=== PATIENT | female | born 1970 | race Caucasian/White ===

== ENCOUNTER 2020-08-29 14:40 | Emergency (ER) | payer OTHER ==
[2020-08-29 14:55] VITALS: BP 165/68; PULSE 80; BMI 34.7
[2020-08-29] MEDS ORDERED: SODIUM CHLORIDE 0.9% 500 ML INFUS.BAG IV ONE (15:48)
[2020-08-29] MEDS ORDERED: KETOROLAC TROMETHAMINE 30 MG/1 ML VIAL IM ONE (15:49)
[2020-08-29] MEDS ORDERED: KETOROLAC TROMETHAMINE 30 MG/1 ML VIAL ONE (15:53)
[2020-08-29 16:47] LABS: BASO % 1.5 % (0-2.0); EOS % 2.3 % (0-4.5); HEMATOCRIT 26.6 % (32.4-45.2); HEMOGLOBIN 8.4 GM/dL (10.7-15.3); LYMPH % 30.4 % (8-40); MCH 25.3 pg (25.7-33.7); MCHC 31.5 g/dl (32.0-36.0); MEAN CELL VOLUME 80.4 fl (80-96); MEAN PLT VOLUME 8.1 fl (7.5-11.1); MONO % 11.6 % (3.8-10.2); NEUT % 54.2 % (42.8-82.8); PLATELET COUNT 462 K/MM3 (134-434); RBC 3.31 M/mm3 (3.60-5.2); RDW 14.5 % (11.6-15.6); WHITE BLOOD COUNT 4.9 K/mm3 (4.0-10.0)
[2020-08-29 17:10] LABS: CHLORIDE 102 mmol/L (98-107); POTASSIUM 4.4 mmol/L (3.5-5.1); SODIUM 138 mmol/L (136-145)
[2020-08-29 17:12] LABS: CALCIUM 8.7 mg/dL (8.5-10.1)
[2020-08-29 17:13] LABS: ALBUMIN 3.7 g/dl (3.4-5.0); ANION GAP 7 MMOL/L (8-16); BLOOD UREA NITROGEN 11.6 mg/dL (7-18); CO2 28 mmol/L (21-32); GLUCOSE,RANDOM 83 mg/dL (74-106)
[2020-08-29 17:16] LABS: CREATININE 0.7 mg/dL (0.55-1.3); SGOT/AST 28 U/L (15-37); SGPT/ALT 16 U/L (13-61)
[2020-08-29 17:17] LABS: BILIRUBIN,TOTAL 0.3 mg/dL (0.2-1); TOT PROT 7.9 g/dl (6.4-8.2)
[2020-08-29 17:18] LABS: ALK PHOS 91 U/L (45-117)
[2020-08-29 17:29] LABS: EPI CELLS 15 /uL (0-25.1); HYALINE CASTS 7 /uL (0-3.1); URINE APPEARANCE CLOUDY; URINE BACTERIA 295 /uL (0-1359); URINE BILIRUBIN NEGATIVE (NEGATIVE); URINE COLOR RED; URINE GLUCOSE (UA) NEGATIVE (NEGATIVE); URINE KETONE NEGATIVE (NEGATIVE); URINE LEUK ESTERASE 2+ (NEGATIVE); URINE NITRITE NEGATIVE (NEGATIVE); URINE PROTEIN 2+ (NEGATIVE); URINE RBC 5001 /uL (0-23.9); URINE UROBILINOGEN 0.2 mg/dL (0.2-1.0); URINE WBC 213 /uL (0-25.8)
[2020-08-29] MEDS ORDERED: medroxyPROGESTERone ACET 150 MG/1 ML VIAL IM ONE (17:53)
== END 2020-08-29 18:15 | disposition home or self-care (01) ==
LOC: JER 14:40
PROC: 3E023GC Introduction of Other Therapeutic Substance into Muscle, Percutaneous Approach (ICD-10-PCS; principal; 2020-08-29)
DX: N93.9 Abnormal uterine and vaginal bleeding, unspecified (principal)
CPT/HCPCS: 36415; 76830-TC; 80053; 81003; 84702; 85025; 99284-25

== ENCOUNTER 2020-09-26 04:23 | Day surgery (SDC) | payer OTHER ==
[2020-09-24 11:13] VITALS: BMI 34.9
[2020-09-26] MEDS ORDERED: MIDAZOLAM HCL 2 MG/2 ML SINGLE DOSE VIAL ONE (14:12)
[2020-09-26] MEDS ORDERED: PROPOFOL 20 ML ONE ×2 (14:12→14:35)
[2020-09-26] MEDS ORDERED: LIDOCAINE HCL 2% 100 MG/5 ML DISP.SYRIN ONE (14:25)
[2020-09-26] MEDS ORDERED: DEXAMETHASONE SOD PHOSPHATE 4 MG/1 ML VIAL ONE (14:43)
[2020-09-26] MEDS ORDERED: oxyCODONE HCL 5 MG TABLET PO PRN ×3 (14:58→16:53)
[2020-09-26] MEDS ORDERED: ONDANSETRON 4 MG/2 ML VIAL IVPUSH PRN ×2 (14:58→16:53)
[2020-09-26] MEDS ORDERED: LACTATED RINGERS SOLUTION 1,000 ML IV SCH (15:00)
[2020-09-26] MEDS ORDERED: IBUPROFEN 600 MG TABLET (FP) PO PRN (16:53)
[2020-09-26] MEDS ORDERED: IBUPROFEN 800 MG/8 ML IJ IVPB PRN (16:53)
[2020-09-26] MEDS ORDERED: ELECTROLYTE-148 SOLN 1,000 ML IV SCH (17:00)
[2020-09-26] MEDS ORDERED: oxyCODONE HCL 5 MG TABLET ONE (17:03)
[2020-09-26] MEDS ORDERED: ONDANSETRON 4 MG/2 ML VIAL ONE (17:05)
[2020-09-26 18:44] VITALS: BP 160/69; PULSE 83; TEMP 97.1
== END 2020-09-26 18:35 | disposition home or self-care (01) ==
LOC: JASU-SURG 04:23
PROVIDERS: ATTEND Obstetrics & Gynecology
PROC: 0UJD8ZZ Inspection of Uterus and Cervix, Via Natural or Artificial Opening Endoscopic (ICD-10-PCS; 2020-09-26)
PROC: 0UB98ZZ Excision of Uterus, Via Natural or Artificial Opening Endoscopic (ICD-10-PCS; principal; 2020-09-26 14:00)
PROC: 0UDB7ZX Extraction of Endometrium, Via Natural or Artificial Opening, Diagnostic (ICD-10-PCS; 2020-09-26 14:00)
DX: N92.1 Excessive and frequent menstruation with irregular cycle (principal); D25.0 Submucous leiomyoma of uterus; D64.9 Anemia, unspecified
CPT/HCPCS: 84703; 88305-TC; 94760

== ENCOUNTER 2020-10-19 17:51 | Emergency (ER) | payer OTHER ==
[2020-10-19 18:14] VITALS: BP 146/67; PULSE 74; TEMP 98.5; BMI 34.9
[2020-10-19] MEDS ORDERED: KETOROLAC TROMETHAMINE 30 MG/1 ML VIAL IVPUSH ONE (21:05)
[2020-10-19] MEDS ORDERED: KETOROLAC TROMETHAMINE 30 MG/1 ML VIAL ONE (21:22)
[2020-10-19 21:45] LABS: POTASSIUM 4.2 mmol/L (3.5-5.1)
[2020-10-19 21:47] LABS: ALBUMIN 3.4 g/dl (3.4-5.0); BLOOD UREA NITROGEN 11.4 mg/dL (7-18); CALCIUM 8.2 mg/dL (8.5-10.1)
[2020-10-19 21:50] LABS: BASO % 1.2 % (0-2.0); CREATININE 0.7 mg/dL (0.55-1.3); EOS % 4.1 % (0-4.5); HEMATOCRIT 32.6 % (32.4-45.2); HEMOGLOBIN 10.7 GM/dL (10.7-15.3); LYMPH % 35.5 % (8-40); MCH 27.9 pg (25.7-33.7); MCHC 32.9 g/dl (32.0-36.0); MEAN CELL VOLUME 84.6 fl (80-96); MEAN PLT VOLUME 8.4 fl (7.5-11.1); MONO % 7.5 % (3.8-10.2); NEUT % 51.7 % (42.8-82.8); PLATELET COUNT 287 K/MM3 (134-434); RBC 3.85 M/mm3 (3.60-5.2)
[2020-10-19 21:56] LABS: BILIRUBIN,TOTAL 0.3 mg/dL (0.2-1)
[2020-10-19 23:19] LABS: ANISOCYTOSIS 2+; MACROCYTOSIS 0; OVALOCYTE 1+; PLATELET ESTIMATE NORMAL
== END 2020-10-19 23:08 | disposition home or self-care (01) ==
LOC: JER 17:51
PROC: 3E0333Z Introduction of Anti-inflammatory into Peripheral Vein, Percutaneous Approach (ICD-10-PCS; principal; 2020-10-19)
DX: N93.9 Abnormal uterine and vaginal bleeding, unspecified (principal); Z87.42 Personal history of other diseases of the female genital tract
CPT/HCPCS: 36415; 76830-TC; 80053; 84703; 85025; 86850; 86900; 86901; 99284-25

== ENCOUNTER 2021-01-14 11:00 | Inpatient (IN) | payer OTHER ==
[2021-01-09 15:16] VITALS: BMI 34.9
[2021-01-21] MEDS ORDERED: BUPIVACAINE LIPOSOME/PF (EXPAREL) 266 MG/20 ML VIAL ONE (10:45)
[2021-01-21] MEDS ORDERED: MIDAZOLAM HCL 2 MG/2 ML SINGLE DOSE VIAL ONE ×2 (10:47)
[2021-01-21] MEDS ORDERED: DEXAMETHASONE SOD PHOSPHATE 4 MG/1 ML VIAL ONE (12:11)
[2021-01-21] MEDS ORDERED: LIDOCAINE HCL/PF 2% SDV 5ML VIAL ONE (12:11)
[2021-01-21] MEDS ORDERED: fentaNYL CITRATE 250 MCG/5 ML VIAL ONE (12:11)
[2021-01-21] MEDS ORDERED: ROCURONIUM BROMIDE 50 MG/5 ML SYRINGE ONE ×2 (12:12→13:31)
[2021-01-21] MEDS ORDERED: PROPOFOL 20 ML ONE (12:12)
[2021-01-21] MEDS ORDERED: ceFAZolin SODIUM 1 GM VIAL ONE (12:34)
[2021-01-21] MEDS ORDERED: ceFAZolin SODIUM 1 GM VIAL IVPB ONE (12:36)
[2021-01-21] MEDS ORDERED: ACETAMINOPHEN INJECTION 100 ML IVPB ONE (14:07)
[2021-01-21] MEDS ORDERED: NEOSTIGMINE METHYLSULFATE 0.5 MG/ML - 10 ML MDV ONE (14:33)
[2021-01-21] MEDS ORDERED: ONDANSETRON 4 MG/2 ML VIAL IVPUSH PRN (14:44)
[2021-01-21] MEDS ORDERED: ELECTROLYTE-148 SOLN 1,000 ML IV SCH (14:45)
[2021-01-21] MEDS ORDERED: HYDROmorphone *PCA* 10MG/50ML DISP.SYRIN PCA SCH (15:00)
[2021-01-21] MEDS ORDERED: LACTATED RINGERS SOLUTION 1,000 ML IV SCH (15:00)
[2021-01-21] MEDS ORDERED: ONDANSETRON 4 MG/2 ML VIAL ONE (15:25)
[2021-01-21] MEDS: ONDANSETRON 4 MG/2 ML VIAL IVPUSH PRN (15:27)
[2021-01-21] MEDS ORDERED: IBUPROFEN 800 MG/8 ML IJ IVPB ONE (15:47)
[2021-01-21] MEDS: IBUPROFEN 800 MG/8 ML IJ IVPB PRN ×2 (15:51→21:01)
[2021-01-21] MEDS ORDERED: diazePAM CARPU-JECT 10 MG/2 ML DISP.SYRIN ONE (16:15)
[2021-01-21] MEDS ORDERED: diazePAM CARPU-JECT 10 MG/2 ML DISP.SYRIN IVPUSH ONE (16:19)
[2021-01-21] MEDS ORDERED: BISACODYL 10 MG SUPP.RECT PR PRN (20:14)
[2021-01-21] MEDS: ceFAZolin 2 GRAM PREMIX BAG IVPB SCH ×2 (22:27→23:46)
[2021-01-22] MEDS: ceFAZolin 2 GRAM PREMIX BAG IVPB SCH ×2 (02:06→09:02)
[2021-01-22] MEDS ORDERED: PCA PUMP KEY 1 EACH EACH ONE (06:27)
[2021-01-22] MEDS: IBUPROFEN 800 MG/8 ML IJ IVPB PRN (06:36)
[2021-01-22 08:57] LABS: BASO % 0.2 % (0-2.0); HEMATOCRIT 23.7 % (32.4-45.2); HEMOGLOBIN 7.5 GM/dL (10.7-15.3); LYMPH % 9.4 % (8-40); MCH 23.4 pg (25.7-33.7); MCHC 31.7 g/dl (32.0-36.0); MEAN CELL VOLUME 73.9 fl (80-96); MEAN PLT VOLUME 7.7 fl (7.5-11.1); MONO % 9.6 % (3.8-10.2); NEUT % 80.8 % (42.8-82.8); PLATELET COUNT 402 K/MM3 (134-434); RDW 15.9 % (11.6-15.6)
[2021-01-22] MEDS: ENOXAPARIN NA (PORCINE) 40 MG/0.4 ML DISP.SYRIN SQ SCH (09:02)
[2021-01-22 09:32] LABS: BLOOD UREA NITROGEN 9.5 mg/dL (7-18); CALCIUM 8.3 mg/dL (8.5-10.1)
[2021-01-22 09:36] LABS: CREATININE 0.7 mg/dL (0.55-1.3)
[2021-01-22] MEDS: amLODIPine BESYLATE 5 MG TABLET (FP) PO SCH (10:37)
[2021-01-22] MEDS: oxyCODONE HCL 5 MG TABLET PO PRN ×3 (11:07→21:40)
[2021-01-22] MEDS: IBUPROFEN 600 MG TABLET (FP) PO PRN ×2 (11:08→16:22)
[2021-01-22] MEDS: LOSARTAN POTASSIUM 25 MG TABLET PO SCH (11:58)
[2021-01-22] MEDS ORDERED: oxyCODONE HCL 5 MG TABLET PO ONE (17:45)
[2021-01-22] MEDS ORDERED: IRON SUCROSE INJECTION 200 MG in SODIUM CHLORIDE 90 ML IVPB ONE (18:34)
[2021-01-22] MEDS: SENNOSIDES/DOCUSATE COMBO (SENNA PLUS) TABLET (UD) PO PRN (21:03)
[2021-01-23] MEDS: oxyCODONE HCL 5 MG TABLET PO PRN ×2 (03:27→17:29)
[2021-01-23] MEDS: ONDANSETRON 4 MG/2 ML VIAL IVPUSH PRN (06:40)
[2021-01-23 07:56] LABS: BASO % 0.4 % (0-2.0); EOS % 0.7 % (0-4.5); HEMATOCRIT 24.5 % (32.4-45.2); HEMOGLOBIN 7.8 GM/dL (10.7-15.3); LYMPH % 11.6 % (8-40); MCH 23.5 pg (25.7-33.7); MEAN CELL VOLUME 73.5 fl (80-96); MEAN PLT VOLUME 7.7 fl (7.5-11.1); MONO % 7.2 % (3.8-10.2); NEUT % 80.1 % (42.8-82.8); PLATELET COUNT 404 K/MM3 (134-434); RBC 3.33 M/mm3 (3.60-5.2); RDW 16.1 % (11.6-15.6); WHITE BLOOD COUNT 10.2 K/mm3 (4.0-10.0)
[2021-01-23] MEDS: ENOXAPARIN NA (PORCINE) 40 MG/0.4 ML DISP.SYRIN SQ SCH ×3 (09:46→11:30)
[2021-01-23] MEDS: LOSARTAN POTASSIUM 25 MG TABLET PO SCH (09:46)
[2021-01-23] MEDS: amLODIPine BESYLATE 5 MG TABLET (FP) PO SCH (09:47)
[2021-01-23] MEDS: IBUPROFEN 800 MG/8 ML IJ IVPB PRN (09:59)
[2021-01-23] MEDS: SENNOSIDES/DOCUSATE COMBO (SENNA PLUS) TABLET (UD) PO PRN (21:25)
[2021-01-23] MEDS: IBUPROFEN 600 MG TABLET (FP) PO PRN (22:58)
[2021-01-24] MEDS: IBUPROFEN 800 MG/8 ML IJ IVPB PRN (00:11)
[2021-01-24] MEDS: oxyCODONE HCL 5 MG TABLET PO PRN (09:01)
[2021-01-24 09:14] LABS: BASO % 0.5 % (0-2.0); EOS % 2.8 % (0-4.5); HEMOGLOBIN 7.9 GM/dL (10.7-15.3); LYMPH % 24.3 % (8-40); MCH 23.2 pg (25.7-33.7); MCHC 31.7 g/dl (32.0-36.0); MEAN CELL VOLUME 73.1 fl (80-96); MEAN PLT VOLUME 7.5 fl (7.5-11.1); MONO % 6.6 % (3.8-10.2); NEUT % 65.8 % (42.8-82.8); PLATELET COUNT 457 K/MM3 (134-434); RBC 3.42 M/mm3 (3.60-5.2); RDW 16.1 % (11.6-15.6); WHITE BLOOD COUNT 9.7 K/mm3 (4.0-10.0)
[2021-01-24] MEDS: amLODIPine BESYLATE 5 MG TABLET (FP) PO SCH (10:36)
[2021-01-24] MEDS: ENOXAPARIN NA (PORCINE) 40 MG/0.4 ML DISP.SYRIN SQ SCH (10:36)
[2021-01-24] MEDS: LOSARTAN POTASSIUM 25 MG TABLET PO SCH (10:36)
[2021-01-24] MEDS: IBUPROFEN 600 MG TABLET (FP) PO PRN (12:42)
[2021-01-24 14:43] VITALS: BP 130/66; PULSE 69; TEMP 98.7
== END 2021-01-24 14:39 | disposition home or self-care (01) | DRG 743 ==
LOC: J2C 01-21 04:46 → J3W 01-21 18:18 → J7W 01-22 19:05
PROVIDERS: ADMIT Obstetrics & Gynecology; ATTEND Obstetrics & Gynecology
PROC: 0UT70ZZ Resection of Bilateral Fallopian Tubes, Open Approach (ICD-10-PCS; 2021-01-21)
PROC: 0DNW0ZZ Release Peritoneum, Open Approach (ICD-10-PCS; 2021-01-21)
PROC: 0UT90ZL Resection of Uterus, Supracervical, Open Approach (ICD-10-PCS; principal; 2021-01-21 11:15)
DX: N92.1 Excessive and frequent menstruation with irregular cycle (principal); D26.0 Other benign neoplasm of cervix uteri; K66.0 Peritoneal adhesions (postprocedural) (postinfection); D25.9 Leiomyoma of uterus, unspecified
CPT/HCPCS: 36415; 80048; 84703; 85025; 86850; 86900; 86901; 86922; 88307-TC; 94010; 94760; J0131; J1756